=== PATIENT | female | born 2000 | race Caucasian/White ===

== ENCOUNTER → 2021-06-18 | Outpatient (CLI) | payer OTHER ==
--- NOTE | 2021-06-18 17:15 | Diagnostic Imaging Report ---
INDICATION: Tailbone pain from a fall AP and lateral views of the sacrum and coccyx do not show any displaced fractures. SI joints are not widened and appear symmetric. IMPRESSION: Negative sacrococcyx Dictated by: Dictated on workstation # [id number]
== END ==
LOC: RAD 16:29
PROVIDERS: ATTEND Physician Assistant
DX: M54.89 Other dorsalgia (principal); M53.3 Sacrococcygeal disorders, not elsewhere classified; W19.XXXA Unspecified fall, initial encounter
CPT/HCPCS: 72220